=== PATIENT | male | born 1980 | race Caucasian/White ===

== ENCOUNTER 2021-08-28 01:23 | Emergency (ER) | payer BC ==
[~2021-08-28] VITALS: Ht 180.3 cm; Wt 111.0 kg
--- NOTE | 2021-08-28 02:08 | PHYS DOC ---
Past History Past Surgical History: No Surgical History Adult General Chief Complaint Chief Complaint: CHEST PAIN HPI HPI Patient is an otherwise healthy 5-year-old male who presents with chest/chest wall pain that started earlier today. States it was not really a pain, felt more like a muscle spasm as the muscles of his chest were twitching a little and around the shoulder. States he did help carry some furniture earlier in the week and felt some of the things around that time. States he got worried he does want to make sure he would have a heart attack. Denies any recent travel, traumas, illness, fevers, shortness of breath, abdominal pain, nausea, vomiting. Denies any numbness/weakness/tingling. Denies any dyspnea on exertion, orthopnea, PND or edema. Denies any early history of cardiac disease in his family that he is aware of. States he is eating and drinking normally for him. States he is making urine and stool normally for him. Review of Systems Review of Systems Review of systems otherwise unremarkable except noted in HPI Allergies Allergies Allergies Coded Allergies Type Severity Reaction Last Updated Verified No Known Drug Allergies 08/28/21 No Physical Exam Physical Exam Constitutional: Well developed, well nourished, no acute distress, non-toxic appearance. [] HENT: Normocephalic, atraumatic, Eyes: PERRLA, EOMI, conjunctiva normal, no discharge. [] Neck: Normal range of motion, no tenderness, supple, no stridor. [] Cardiovascular:Heart rate regular rhythm, no murmur [] Lungs & Thorax: Bilateral breath sounds clear to auscultation [] Abdomen: soft, no tenderness, no masses, no pulsatile masses. [] Skin: Warm, dry, no erythema, no rash. [] Extremities: No tenderness, no cyanosis, no clubbing, ROM intact, no edema. [] Neurologic: Alert and oriented X 3, normal motor function, normal sensory function, able to sit, stand and walk without issue no focal deficits noted. [] Psychologic: Affect normal, judgement normal, mood normal. [] Current Patient Data Vital Signs Vital Signs Date Time Temp Pulse Resp B/P (MAP) Pulse Ox O2 Delivery O2 Flow Rate FiO2 08/28/21 01:32 77 28 152/101 (118) 97 Room Air EKG EKG [] Radiology/Procedures Radiology/Procedures [] Heart Score C/O Chest Pain: Yes HEART Score for Chest Pain: HEART Score for Chest Pain Response (Comments) Value ECG Normal 0 Age < 45 0 Risk Factors 1 or 2 Risk Factors 1 Troponin < Normal Limit 0 Total 1 Risk Factors: Risk Factors: DM, Current or recent (<one month) smoker, HTN, HLP, family history of CAD, obesity. Risk Scores: Risk Factors: DM, Current or recent (<one month) smoker, HTN, HLP, family history of CAD, obesity. Course & Med Decision Making Course & Med Decision Making Patient is a 41-year-old male who presents with chest/chest wall pain/spasms Vital signs notable for mild hypertension. Physical exam noted above. EKG with a rate of 69 QRS of 94, QTc of 398, no STEMI. Troponin normal. Chest x-ray nonconcerning. Patient took aspirin, 324 mg just before coming. Heart score 1. Low risk [place]. PERC negative. Discussed all findings with patient. Advised ceasing alcohol use as he binge drinks about 5 or 6 drinks twice a week. Advised to follow-up in the morning with a primary care physician to update on ED visit Gave return precautions to the ED. Patient grateful, verbalized understanding and agreed with plan of discharge. [] Dragon Disclaimer Dragon Disclaimer This electronic medical record was generated, in whole or in part, using a voice recognition dictation system. Departure Departure: Impression: Primary Impression: Chest pain Disposition: HOME / SELF CARE / HOMELESS Condition: GOOD Referrals: PCP,UNKNOWN (PCP) CHRISTIN BERRY MD Patient Instructions: Chest Pain (Nonspecific) Additional Instructions: Thank you for coming into the emergency department tonight and allowing us to take care of you. Please read the attached information carefully to go over things we discussed. Please see his drinking alcohol as we discussed. Please eat at least 3 nutritious meals a day and take a multivitamin. Please follow-up in the morning with a primary care physician update on your ED visit and set up a follow-up appointment for continued evaluation and treatment. Please come back with new or concerning symptoms as we discussed. LINDA LIU MD Aug 28, 2021 02:07
--- NOTE | 2021-08-28 02:39 | RAD ---
XR CHEST 1V INDICATION: chest wall pain COMPARISON STUDY: None. FINDINGS: Lungs: Normal lung volume. No pulmonary mass or consolidation. The tracheobronchial tree and hilar st ructures are normal. Pleura: No pleural effusion or pneumothorax. Heart and Mediastinum: The cardiomediastinal silhouette is normal. The great vessels of the thorax ar e normal. Bones and Soft Tissues: The bones and soft tissues are within normal limits. IMPRESSION: No acute cardiopulmonary process. Electronically signed by: Wally Bravo MD (08/28/2021 2:36 AM) [facility]
[2021-08-28 03:01] VITALS: BP 150/70
--- NOTE | 2021-08-28 19:53 | EKG ---
[address] [address] Test Date: 2021-08-28 Test Time: 01:31:21 Pat Name: JULIÁN COUCH Department: Room: Gender: M Type Rolling Machine Operator: ASH : 1980 Requested By: LINDA LIU Order Number: [id number] Reading MD: Catracho Wade Measurements Intervals [place] Rate: 69 P: 35 AL: 156 QRS: 49 QRSD: 94 T: 7 QT: 370 QTc: 398 Interpretive Statements SINUS RHYTHM Electronically Signed On 08-29-2021 19:31:20 ION EXCHANGE OPERATOR by Catracho Wade
== END 2021-08-28 03:10 | disposition home or self-care (01) ==
LOC: ER 01:23
DX: R07.89 Other chest pain (principal); M62.830 Muscle spasm of back
CPT/HCPCS: 36415; 71045; 84484; 93005; 99285-25